=== PATIENT | male | born 1985 | race Caucasian/White ===

== ENCOUNTER 2023-12-25 18:45 | Emergency (ER) | payer MEDICAID, OTHER ==
[~2023-12-25] VITALS: Ht 177.8 cm; Wt 75.9 kg
[2023-12-25] MEDS ORDERED: NEOM-48 EX (19:24)
[2023-12-25 20:05] VITALS: BP 138/100; PULSE 95; RESP 19; TEMP 98.9; O2SAT 97
== END 2023-12-25 20:10 | disposition home or self-care (01) ==
LOC: ER 18:45
DX: L98.9 Disorder of the skin and subcutaneous tissue, unspecified (principal); F15.10 Other stimulant abuse, uncomplicated; F17.210 Nicotine dependence, cigarettes, uncomplicated; Z59.00 Homelessness unspecified

== ENCOUNTER 2024-01-16 01:42 | Emergency (ER) | payer OTHER ==
[~2024-01-16] VITALS: Ht 177.8 cm; Wt 73.1 kg
[~2024-01-16 01:42] MED LIST: NEOM-48 EX
[2024-01-16 02:38] VITALS: BP 135/95; PULSE 76; RESP 18; TEMP 98.9; O2SAT 97
[2024-01-16] MEDS ORDERED: HYDR-3682 PO (02:44)
[2024-01-16] MEDS ORDERED: PER60TP TOP (02:44)
--- NOTE | 2024-01-16 02:45 | ED.PDOC ---
History of Present Illness(SKN HPI Comments A 38-YEAR-OLD MALE CHIEF COMPLAINT RASH TO LOWER LEGS X1 YEAR. PATIENT STATES HE WAS TOLD HIM SCABIES HOWEVER NEVER HAD TREATED. REPORTS RECENT NEW MATTRESS IN THE HOUSE NO CARPET IN HIS ROOM. DOES STATE ITCHY. DENIES FEVER, CHILLS, NAUSEA OR VOMITING. Chief Complaint: Rash Time Seen by MD: 01:48 Primary Care Provider: NONE History of Present Illness: Nurses Notes, Medications, Allergies Allergies: Coded Allergies: NO KNOWN ALLERGIES (Unverified , 10/27/13) Home Meds Active Scripts Tedechiy-Ztqjbqrokw-Mnmoryjqq (Neosporin Original) Original Oin, 1 EA EX BID PRN for 10 Days, #1 OIN Prov:RIVER FRY MD 12/25/23 Mode of Arrival: Ambulatory Past Medical History PAST MEDICAL HISTORY: Denies Surgical History: Denies all surgeries Family History Family History: Unknown Social History Smoker: Cigarettes, Less Than 1 Pack/Day Alcohol: Denies ETOH Use Drugs: Heroin Lives In: Homeless Constitutional: denies: chills, diaphoresis, fatigue, fever, malaise, sweats, weakness, others EENTM: denies: blurred vision, double vision, ear bleeding, ear discharge, ear drainage, ear pain, ear ringing, eye pain, eye redness, hearing loss, mouth pain, mouth swelling, nasal discharge, nose bleeding, nose congestion, nose pain, photophobia, tearing, throat pain, throat swelling, voice changes, others Respiratory: denies: cough, hemoptysis, orthopnea, SOB at rest, shortness of breath, SOB with excertion, stridor, wheezing, others Cardiovascular: denies: chest pain, dizzy spells, diaphoresis, Dyspnea on exertion, edema, irregular heart beat, left arm pain, lightheadedness, palpitations, PND, syncope, others Gastrointestinal: denies: abdomen distended, abdominal pain, blood streaked bowels, constipated, diarrhea, dysphagia, difficulty swallowing, hematemesis, melena, nausea, poor appetite, poor fluid intake, rectal bleeding, rectal pain, vomiting, others Genitourinary: denies: burning, dysuria, flank pain, frequency, hematuria, incontinence, penile discharge, penile sore, pain, testicle pain, testicle swelling, urgency, others Neurological: denies: dizziness, fainting, headache, left sided numbness, left sided weakness, numbness, paresthesia, pre-existing deficit, right sided numbness, right sided weakness, seizure, speech problems, tingling, tremors, weakness, others Musculoskeletal: denies: back pain, gout, joint pain, joint swelling, muscle pain, muscle stiffness, neck pain, others Integumetry: reports: rash; denies: bruises, change in color, change in hair/nails, dryness, laceration, lesions, lumps, wounds, others Allergic/Immunocompromised: denies: Difficulty Healing, Frequent Infections, Hives, Itching, others Hematologic/Lymphatic: denies: anemia, blood clots, easy bleeding, easy bruising, swollen glands, others Endocrine: denies: excessive hunger, excessive sweating, excessive thirst, excessive urination, flushing, intolerance to cold, intolerance to heat, unexplained weight gain, unexplained weight loss, others Psychiatric: denies: anxiety, bipolar disorder, depression, hopeless, panic disorder, schizophrenia, sleepless, suicidal, others Physical Exam General Appearance: No Apparent Distress, Normal HEENT: Pharynx Normal Neck: Full Range of Motion, Non-Tender Respiratory: Lungs Clear, No Respiratory Distress, Normal Breath Sounds Cardiovascular: No Murmur, Normal Peripheral Pulses, Regular Rate/Rhythm Breast Exam: Deferred Gastrointestinal: Non Tender, Soft Genitalia: Deferred Pelvic: Deferred Rectal: Deferred Extremities: Normal capillary refill, Normal inspection, Normal range of motion, Non-tender, No pedal edema Musculoskeletal : Apperance: Normal Neurologic: Alert, casino attendant II-XII nml as Tested, No Motor Deficits, Normal Affect, Normal Mood, No Sensory Deficits Cerebellar Function: Normal Reflexes: Normal Skin: Dry, Normal Color, Rash (INDURATED HARITHA SIZE LESIONS SCATTERED ALONG BILATERAL LOWER LEGS. NO NOTED EXCORIATIONS, ERYTHEMA, OR DRAINAGE.), Warm Lymphatic: No Adenopathy Was a procedure done? Was a procedure done?: No Differential Diagnosis (INTG) Differential Diagnosis: Cellulitis X-Ray, Labs, Meds, VS Vital Signs Date Time Temp Pulse Resp B/P (MAP) Pulse Ox O2 Delivery O2 Flow Rate FiO2 01/16/24 02:38 98.9 76 18 135/95 (108) 97 98.9 01/16/24 02:21 98.9 76 18 135/95 (108) 97 X-Ray, Labs, Meds, VS Comment LIKELY SECONDARY TO BED BUGS. HOWEVER PATIENT REPORTS HISTORY OF SCABIES WE WILL TRIAL PERMETHRIN CREAM AND HYDROXYZINE FOR SLEEP. ADVISED TO WASH ALL HIS CLOTHES LINEN IN HOT WATER. CONSIDER TERMINAL CLEAN OF HIS BEDROOM. HE IS TO FOLLOW UP WITH HIS PCP IN 2-3 DAYS NECESSARY. RETURN TO THE ER FOR ANY CONCERNING SYMPTOMS. Time of 1ST Reevaluation: 02:42 Reevaluation 1ST: Unchanged Patient Education/Counseling: Diagnosis, Treatment, Prognosis, Need For Follow Up Family Education/Counseling: No Family Present Departure 1 Departure Time of Disposition: 02:43 Impression: Primary Impression: Rash and nonspecific skin eruption Disposition: 01 HOME / SELF CARE / HOMELESS Condition: Stable e-Prescriptions Hydroxyzine Hcl (Hydroxyzine Hcl) 25 Mg Tab 1 TAB PO BID PRN for 10 Days, #20 TAB Prov: BRIAN JEFFERSON 01/16/24 Permethrin (Elimite) 5 % Cre 1 APPLIC TOP ONCE for 1 Day, #60 GRAMS 1 Refill Prov: BRIAN JEFFERSON 01/16/24 Discharged With: Spouse Critical Care Note Critical Care Time?: No Stability Stability form required: No BRIAN JEFFERSON Jan 16, 2024 02:45
== END 2024-01-16 03:01 | disposition home or self-care (01) ==
LOC: ER 01:42
DX: R21 Rash and other nonspecific skin eruption (principal); F17.210 Nicotine dependence, cigarettes, uncomplicated; Z59.00 Homelessness unspecified